=== PATIENT | male | born 1960 | race Caucasian/White ===

== ENCOUNTER → 2018-02-10 | Outpatient (CLI) | payer OTHER ==
[~2018-02-10] MED LIST: AMPICILLIN TRI500 MG PO; ATIVAN1 MG PO; BACTRIM,SEPT1 TABLET PO; DILAUDID2 MG PO; FLAGYL500 MG PO; FLEXERIL10 MG PO; FLEXERIL5 MG PO; FUROSEMIDE40 MG PO; GLUCOPHAGE1000 MG PO; GLUCOPHAGE500 MG PO; K-DUR10 MEQ PO; K-DUR20 MEQ PO; KLOR-CON SPRIN10 MEQ PO; LASIX20 MG PO; LIDOCAINE700 MG TD; LIDODERM 5% P1 PATCH TD; LISINOPRIL20 MG PO; MEN'S MULTI-VI1 EACH PO; METFORMIN HCL1000 MG PO; MILK OF MAGN PO; OXYCODONE HCL5 MG PO; PERCOCET 5/31 TABLET PO; PHARMACIST FAV1 EACH PO; PHILLIPS'400 MG/5 M PO; SENNA-TIME S T1 EACH PO; TRAMADOL HCL50 MG PO; VALIUM2 MG PO; VALIUM5 MG PO
[2018-02-10 09:22] LABS: INTER. NORMALIZED RATIO 1.1
[2018-02-10 09:25] LABS: PTT 35.2 SEC (25-37)
== END | disposition home or self-care (01) ==
LOC: OPR 08:27 → EDSTATUS 09:00 → OPR 09:00
PROVIDERS: Surgery
PROC: 0J9830Z Drainage of Abdomen Subcutaneous Tissue and Fascia with Drainage Device, Percutaneous Approach (ICD-10-PCS; principal; 2018-02-10)
DX: T88.8XXA Other specified complications of surgical and medical care, not elsewhere classified, initial encounter (principal); E11.9 Type 2 diabetes mellitus without complications; Z79.84 Long term (current) use of oral hypoglycemic drugs; I10 Essential (primary) hypertension; E66.01 Morbid (severe) obesity due to excess calories; D64.9 Anemia, unspecified; B19.20 Unspecified viral hepatitis C without hepatic coma; Z96.649 Presence of unspecified artificial hip joint; Z83.3 Family history of diabetes mellitus; Z82.49 Family history of ischemic heart disease and other diseases of the circulatory system; Z80.1 Family history of malignant neoplasm of trachea, bronchus and lung; Z80.42 Family history of malignant neoplasm of prostate
CPT/HCPCS: 10030; 82948; 85610; 85730; 87070; 87075; 87205; C1769; J3010

== ENCOUNTER → 2018-02-21 | Outpatient (CLI) | payer OTHER | END | disposition home or self-care (01) | LOC: RAD 12:47 | DX: T88.8XXA Other specified complications of surgical and medical care, not elsewhere classified, initial encounter (principal) ==

== ENCOUNTER 2018-04-23 16:57 | Emergency (ER) | payer OTHER ==
[~2018-04-23] VITALS: Ht 177.8 cm; Wt 149.7 kg
[2018-04-23 17:46] LABS: BASOPHIL (%) 0.6 % (0-1); EOSINOPHIL (%) 3.4 % (0-5); EOSINOPHIL COUNT 0.2 K/uL (0-0.3); HEMATOCRIT 38.6 % (38.0-50.0); HEMOGLOBIN 13.1 G/DL (12.5-16.6); IMMATURE GRANULOCYTE (%) 0.2 % (0.0-0.7); LYMPHOCYTE (%) 17.6 % (15-42); LYMPHOCYTE COUNT 0.8 K/uL (1.0-2.8); MCH 32.8 PG (29.0-34.0); MCHC 33.9 G/DL (30.0-36.0); MCV 96.7 FL (86-99); MONOCYTE (%) 13.7 % (3-12); MONOCYTE COUNT 0.6 K/uL (0-0.8); NEUTROPHIL (%) 64.5 % (45-76); PLATELET COUNT 71 K/uL (156-360); RBC DIS.WIDTH-CV 14.5 % (11.8-14.6); RBC DIS.WIDTH-SD 51.8 % (39-53); RED BLOOD COUNT 3.99 M/uL (4.00-5.50); WHITE BLOOD COUNT 4.7 K/uL (4.1-10.2)
[2018-04-23 17:58] LABS: ALBUMIN 2.8 g/dL (3.2-4.8)
[2018-04-23 17:59] LABS: CHLORIDE 105 mEq/L (99-109); POTASSIUM 3.8 mEq/L (3.7-5.4); SODIUM 136 mEq/L (136-147)
[2018-04-23 18:01] LABS: GLUCOSE 213 mg/dL (70-99); TOTAL PROTEIN 7.1 g/dL (6.4-8.3)
[2018-04-23 18:03] LABS: TOTAL BILIRUBIN 1.2 mg/dL (0.0-1.0)
[2018-04-23 18:04] LABS: ALKALINE PHOSPHATASE 156 IU/L (3-129)
[2018-04-23 18:05] LABS: CREATININE 0.8 mg/dL (0.6-1.3); GFR ESTIMATE (CALCULATED) > 59 mL/min/ (58.99-99999)
[2018-04-23 18:06] LABS: AST (GOT) 145 IU/L (2-34); UREA NITROGEN (BUN) 7 mg/dL (9-23)
[2018-04-23 18:07] LABS: ALT (GPT) 56 IU/L (3-49)
[2018-04-23 19:16] LABS: INTER. NORMALIZED RATIO 1.2
[2018-04-23 19:19] LABS: PTT 34.6 SEC (25-37)
[2018-04-23] MEDS ORDERED: VIBRAMYCIN100 MG PO (20:45)
[2018-04-23 21:07] VITALS: BP 130/87
== END 2018-04-23 21:09 | disposition home or self-care (01) ==
LOC: EME 16:57
PROVIDERS: Nurse Practitioner Family
DX: L03.311 Cellulitis of abdominal wall (principal); R19.00 Intra-abdominal and pelvic swelling, mass and lump, unspecified site; D69.6 Thrombocytopenia, unspecified; E11.65 Type 2 diabetes mellitus with hyperglycemia; E11.40 Type 2 diabetes mellitus with diabetic neuropathy, unspecified; Z79.84 Long term (current) use of oral hypoglycemic drugs; R74.0 Nonspecific elevation of levels of transaminase and lactic acid dehydrogenase [LDH]; I10 Essential (primary) hypertension; Z87.442 Personal history of urinary calculi; B19.20 Unspecified viral hepatitis C without hepatic coma; Z96.642 Presence of left artificial hip joint; Z90.49 Acquired absence of other specified parts of digestive tract
CPT/HCPCS: 74177; 80053; 82948; 83605; 85025; 85610; 85730; 87040; 99281; 99285; J7030